=== PATIENT | female | born 1960 | race Hispanic/Latino ===

== ENCOUNTER → 2018-03-29 | Outpatient (CLI) | payer MEDICARE | END | disposition home or self-care (01) | LOC: OIH 13:06 | PROVIDERS: ATTEND Internal Medicine | DX: M17.0 Bilateral primary osteoarthritis of knee (principal) | CPT/HCPCS: 73560 ==

== ENCOUNTER 2018-04-02 03:44 | Emergency (ER) | payer MEDICARE ==
[2018-04-02] MEDS ORDERED: DEXAMETHASONE SOD PHOSPHATE 10MG/ML 1ML VIAL ONE (04:32)
[2018-04-02] MEDS ORDERED: PENICILLIN G BENZATHINE LA 1.2 MILUNITS/2 ML SYG ONE (04:37)
[2018-04-02] MEDS ORDERED: LIDOCAINE HCL 2% VISCOUS 15 ML UDCUP ONE (04:47)
== END 2018-04-02 05:36 | disposition home or self-care (01) ==
LOC: EDH 03:44
DX: J06.0 Acute laryngopharyngitis (principal); I10 Essential (primary) hypertension; Z98.890 Other specified postprocedural states
CPT/HCPCS: 71046; 87804 ×2; 87880; 96372 ×2; 99285; J0561; J1100

== ENCOUNTER 2019-03-22 09:34 | Emergency (ER) | payer MEDICARE ==
[2019-03-22 10:05] LABS: CREATININE 0.8 mg/dL (0.5-1.5); POTASSIUM 3.9 mmol/L (3.5-5.1)
[2019-03-22 10:10] LABS: ALBUMIN 3.2 g/dL (3.5-5.0); BILIRUBIN,TOTAL 0.5 mg/dL (0.2-1.0); TOTAL PROTEIN, SERUM 7.7 g/dL (6.0-8.3)
[2019-03-22] MEDS ORDERED: SODIUM CHLORIDE 0.9% 1000ML 1,000 ML IV ONE (10:23)
[2019-03-22 10:27] LABS: BASOPHILS % (AUTO) 0.4 % (0.0-5.0); EOSINOPHILS % (AUTO) 1.3 % (0.0-8.0); HEMATOCRIT 42.2 % (36-48); LYMPHOCYTES % (AUTO) 29.8 % (21.0-51.0); MEAN CORPUSCULAR HEMOGLOBIN 29.4 pg (27.0-33.0); MEAN CORPUSCULAR HGB CONC 33.3 g/dL (32.0-36.0); MEAN CORPUSCULAR VOLUME 88.1 fL (79-99); NEUTROPHILS % (AUTO) 60.5 % (40.0-77.0); NUCLEATED RED BLOOD CELLS 0.1 % (0.0-0.19); PLATELET COUNT (AUTO) 270 K/uL (130-400); RED BLOOD CELL COUNT(AUTO) 4.79 MIL/uL (4.00-5.50); RED CELL DISTRIBUTION WIDTH 13.6 % (11.0-15.5); WHITE BLOOD COUNT (AUTO) 8.4 K/uL (4.8-10.8)
[2019-03-22 11:04] LABS: APPEARANCE,URINE Cloudy (CLEAR); BILIRUBIN,URINE Negative (NEGATIVE); COLOR,URINE Yellow (YELLOW); GLUCOSE, URINE (UA) Negative (NEGATIVE); KETONES,URINE Negative (NEGATIVE); LEUKOCYTE ESTERASE ,URINE Trace (NEGATIVE); NITRATE,URINE Negative (NEGATIVE); OCCULT BLOOD,URINE Trace (NEGATIVE); PROTEIN,URINE Negative (NEGATIVE)
[2019-03-22 11:25] LABS: BACTERIA,URINE Few /HPF (None Seen); RBC,URINE 0-1 /HPF (0-1); WBC,URINE 0-1 /HPF (0-1)
[2019-03-22] MEDS ORDERED: LORAZEPAM 2 MG/ML 1 ML VIAL ONE (11:26)
== END 2019-03-22 12:43 | disposition home or self-care (01) ==
LOC: EDH 09:34
DX: R55 Syncope and collapse (principal); R53.1 Weakness; I10 Essential (primary) hypertension; F41.9 Anxiety disorder, unspecified; K21.9 Gastro-esophageal reflux disease without esophagitis; E78.5 Hyperlipidemia, unspecified; F31.9 Bipolar disorder, unspecified; Z79.899 Other long term (current) drug therapy
CPT/HCPCS: 36415; 80053; 81001; 82948; 84443; 84484; 85025; 93005; 96361; 96374; 99285; J2060; J7030

== ENCOUNTER → 2019-07-19 | Outpatient (CLI) | payer MEDICARE | END | disposition home or self-care (01) | LOC: SLP 20:13 | PROVIDERS: ATTEND Family Medicine | DX: G47.33 Obstructive sleep apnea (adult) (pediatric) (principal) | CPT/HCPCS: 95810 ==

== ENCOUNTER → 2019-08-26 | Outpatient (CLI) | payer MEDICARE | END | disposition home or self-care (01) | LOC: SLP 19:52 | PROVIDERS: ATTEND Family Medicine | DX: G47.30 Sleep apnea, unspecified (principal) | CPT/HCPCS: 95811 ==

== ENCOUNTER 2019-12-28 16:24 | Emergency (ER) | payer OTHER, MEDICARE ==
[2019-12-28 17:05] LABS: BASOPHILS % (AUTO) 0.3 % (0.0-5.0); EOSINOPHILS % (AUTO) 0.9 % (0.0-8.0); HEMATOCRIT 43.1 % (36-48); MEAN CORPUSCULAR HEMOGLOBIN 28.1 pg (27.0-33.0); MEAN CORPUSCULAR HGB CONC 31.8 g/dL (32.0-36.0); MEAN CORPUSCULAR VOLUME 88.3 fL (79-99); MONOCYTES % (AUTO) 7.3 % (3.0-13.0); NEUTROPHILS % (AUTO) 62.9 % (40.0-77.0); PLATELET COUNT (AUTO) 293 K/uL (130-400); RED BLOOD CELL COUNT(AUTO) 4.88 MIL/uL (4.00-5.50); RED CELL DISTRIBUTION WIDTH 14.1 % (11.0-15.5); WHITE BLOOD COUNT (AUTO) 13.9 K/uL (4.8-10.8)
[2019-12-28 17:13] LABS: APPEARANCE,URINE Clear (CLEAR); BILIRUBIN,URINE Negative (NEGATIVE); COLOR,URINE Yellow (YELLOW); GLUCOSE, URINE (UA) Negative (NEGATIVE); KETONES,URINE Negative (NEGATIVE); LEUKOCYTE ESTERASE ,URINE Trace (NEGATIVE); NITRATE,URINE Negative (NEGATIVE); OCCULT BLOOD,URINE Moderate (NEGATIVE); PROTEIN,URINE Negative (NEGATIVE)
[2019-12-28 17:18] LABS: CREATININE 0.8 mg/dL (0.5-1.5); POTASSIUM 4.5 mmol/L (3.5-5.1)
[2019-12-28 17:23] LABS: ALBUMIN 3.3 g/dL (3.5-5.0); BILIRUBIN,TOTAL 0.3 mg/dL (0.2-1.0); TOTAL PROTEIN, SERUM 7.8 g/dL (6.0-8.3)
[2019-12-28 17:27] LABS: BACTERIA,URINE Few /HPF (None Seen); SQUAMOUS EPITHELIAL CELL,UR Few /HPF (0-2)
[2019-12-28] MEDS ORDERED: CEPHALEXIN 500 MG CAPSULE ONE (21:37)
== END 2019-12-28 21:46 | disposition home or self-care (01) ==
LOC: EDH 16:24
DX: N39.0 Urinary tract infection, site not specified (principal); M62.81 Muscle weakness (generalized); R10.84 Generalized abdominal pain; Z20.828 Contact with and (suspected) exposure to other viral communicable diseases; I10 Essential (primary) hypertension; E78.5 Hyperlipidemia, unspecified; F31.9 Bipolar disorder, unspecified; K21.9 Gastro-esophageal reflux disease without esophagitis
CPT/HCPCS: 36415; 74176; 80053; 81001; 82550; 84484; 85025; 87426; 87804 ×2; 93005; 99285; U0003

== ENCOUNTER 2022-05-17 14:42 | Emergency (ER) | payer MEDICARE ==
[~2022-05-17] VITALS: Ht 160 cm; Wt 92.5 kg
[2022-05-17 15:25] LABS: BASOPHILS % (AUTO) 0.3 % (0.0-5.0); HEMATOCRIT 46.1 % (36-48); LYMPHOCYTES % (AUTO) 28.7 % (21.0-51.0); MEAN CORPUSCULAR HEMOGLOBIN 28.8 pg (27.0-33.0); MEAN CORPUSCULAR HGB CONC 31.7 g/dL (32.0-36.0); MEAN CORPUSCULAR VOLUME 90.9 fL (79-99); MONOCYTES % (AUTO) 6.1 % (3.0-13.0); NEUTROPHILS % (AUTO) 62.5 % (40.0-77.0); PLATELET COUNT (AUTO) 279 K/uL (130-400); RED BLOOD CELL COUNT(AUTO) 5.07 MIL/uL (4.00-5.50); RED CELL DISTRIBUTION WIDTH 13.2 % (11.0-15.5); WHITE BLOOD COUNT (AUTO) 13.4 K/uL (4.8-10.8)
[2022-05-17 15:26] LABS: APPEARANCE,URINE CLEAR (CLEAR); BILIRUBIN,URINE NEGATIVE (NEGATIVE); COLOR,URINE LIGHT-YELLOW (YELLOW); GLUCOSE, URINE (UA) NEGATIVE (NEGATIVE); KETONES,URINE NEGATIVE (NEGATIVE); LEUKOCYTE ESTERASE ,URINE NEGATIVE Leu/uL (NEGATIVE); NITRATE,URINE NEGATIVE (NEGATIVE); OCCULT BLOOD,URINE SMALL (NEGATIVE); PH,URINE 6.5 (5.0-8.0); PROTEIN,URINE NEGATIVE (NEGATIVE); UROBILINOGEN,URINE 0.2 mg/dL (0.2-1.0)
[2022-05-17 15:36] LABS: CREATININE 0.9 mg/dL (0.5-1.5)
[2022-05-17 15:36] LABS: RBC,URINE 0-1 /HPF (0-1); SQUAMOUS EPITHELIAL CELL,UR FEW /HPF (0-2); WBC,URINE 0-1 /HPF (0-1)
[2022-05-17 15:45] LABS: ALBUMIN 3.5 g/dL (3.5-5.0); TOTAL PROTEIN, SERUM 8.2 g/dL (6.0-8.3)
[2022-05-17 19:30] VITALS: BP 135/74
[2022-05-17] MEDS ORDERED: OMEP-420 PO (19:53)
== END 2022-05-17 20:04 | disposition home or self-care (01) ==
LOC: EDH 14:42
DX: K29.70 Gastritis, unspecified, without bleeding (principal); F41.9 Anxiety disorder, unspecified; I10 Essential (primary) hypertension; E78.5 Hyperlipidemia, unspecified; G47.30 Sleep apnea, unspecified; Z79.899 Other long term (current) drug therapy
CPT/HCPCS: 36415; 71045; 76705; 80053; 81001; 83690; 84484; 85025; 93005

== ENCOUNTER 2024-03-15 21:47 | Emergency (ER) | payer MEDICARE ==
[~2024-03-15] VITALS: Ht 160 cm; Wt 92.1 kg
[~2024-03-15 21:47] MED LIST: OMEP-420 PO
[2024-03-15 21:50] VITALS: TEMP 98.5
[2024-03-15 22:40] LABS: BASOPHILS # (AUTO) 0.03 K/uL (0.00-0.20); BASOPHILS % (AUTO) 0.3 % (0.0-5.0); EOSINOPHILS # (AUTO) 0.17 K/uL (0.00-0.70); EOSINOPHILS % (AUTO) 1.5 % (0.0-8.0); HEMATOCRIT 41.2 % (36-48); IMMATURE GRANULOCYTE ABSOLUTE 0.05 K/uL (0-1); LYMPHOCYTES # (AUTO) 2.4 K/uL (1.0-4.8); LYMPHOCYTES % (AUTO) 21.4 % (21.0-51.0); MEAN CORPUSCULAR HEMOGLOBIN 28.3 pg (27.0-33.0); MEAN CORPUSCULAR VOLUME 88.2 fL (79-99); MONOCYTES # (AUTO) 0.8 K/uL (0.1-1.0); MONOCYTES % (AUTO) 6.8 % (3.0-13.0); NEUTROPHILS # (AUTO) 7.8 K/uL (1.8-7.7); NEUTROPHILS % (AUTO) 69.6 % (40.0-77.0); PLATELET COUNT (AUTO) 293 K/uL (130-400); RED BLOOD CELL COUNT(AUTO) 4.67 MIL/uL (4.00-5.50); RED CELL DISTRIBUTION WIDTH 13.4 % (11.0-15.5); WHITE BLOOD COUNT (AUTO) 11.2 K/uL (4.8-10.8)
[2024-03-15 22:50] LABS: CREATININE 0.8 mg/dL (0.5-1.0); POTASSIUM 4.1 mmol/L (3.5-5.1)
[2024-03-15 23:00] VITALS: BP 154/78; PULSE 87; RESP 18; O2SAT 98
[2024-03-15 23:12] LABS: B-TYPE NATRIURETIC PEPTIDE 15 pg/mL (0-100)
== END 2024-03-15 23:52 | disposition home or self-care (01) ==
LOC: EDH 21:47
DX: R07.89 Other chest pain (principal); F41.9 Anxiety disorder, unspecified; I10 Essential (primary) hypertension; G47.30 Sleep apnea, unspecified; Z79.899 Other long term (current) drug therapy
CPT/HCPCS: 36415; 71045; 80048; 82550; 83880; 84484; 85025; 93005

== ENCOUNTER 2024-05-31 19:58 | Emergency (ER) | payer MEDICARE ==
[~2024-05-31] VITALS: Ht 160 cm; Wt 83.5 kg
--- NOTE | 2024-05-31 20:27 | EKG ---
[facility] Test Date: 2024-05-31 Test Time: 20:24:35 Pat Name: BETY ROSE Department: ED Room: Gender: F Fisher Trot Line: [id number] : 1960 Requested By: ORLANDO TOSCANO Order Number: [id number] Reading MD: Huseyin Yoder Measurements Intervals [place] Rate: 57 P: 48 [place]: 158 QRS: -26 QRSD: 106 T: 48 QT: 409 QTc: 397 Interpretive Statements Sinus rhythm Compared to ECG 03/15/2024 22:46:07 Myocardial infarct finding no longer present Electronically Signed On 06-01-2024 18:39:46 ELECTRICAL ENGINEER MEP by Huseyin Yoder Please click the below link to view image of tracing.
[2024-05-31 21:03] LABS: BASOPHILS # (AUTO) 0.04 K/uL (0.00-0.20); BASOPHILS % (AUTO) 0.4 % (0.0-5.0); EOSINOPHILS # (AUTO) 0.21 K/uL (0.00-0.70); EOSINOPHILS % (AUTO) 1.9 % (0.0-8.0); HEMATOCRIT 42.7 % (36-48); IMMATURE GRANULOCYTE ABSOLUTE 0.03 K/uL (0-1); LYMPHOCYTES # (AUTO) 3.5 K/uL (1.0-4.8); LYMPHOCYTES % (AUTO) 31.2 % (21.0-51.0); MEAN CORPUSCULAR HEMOGLOBIN 28.4 pg (27.0-33.0); MEAN CORPUSCULAR HGB CONC 31.6 g/dL (32.0-36.0); MEAN CORPUSCULAR VOLUME 89.9 fL (79-99); MONOCYTES # (AUTO) 0.8 K/uL (0.1-1.0); MONOCYTES % (AUTO) 7.2 % (3.0-13.0); NEUTROPHILS # (AUTO) 6.7 K/uL (1.8-7.7); PLATELET COUNT (AUTO) 304 K/uL (130-400); RED BLOOD CELL COUNT(AUTO) 4.75 MIL/uL (4.00-5.50); RED CELL DISTRIBUTION WIDTH 13.4 % (11.0-15.5); WHITE BLOOD COUNT (AUTO) 11.3 K/uL (4.8-10.8)
--- NOTE | 2024-05-31 21:05 | HMCIMG ---
PORTABLE CHEST RADIOGRAPH INDICATION: fluid overload COMPARISON: 03/15/2024 FINDINGS: Heart size is normal. The pulmonary vascularity and gladys appear normal. No abnormal pulmonary parenchymal opacity or consolidation identified. No significant pleural effusion noted. No pneumothorax detected. IMPRESSION: No radiographic evidence for any acute cardiopulmonary process.
[2024-05-31 21:23] LABS: B-TYPE NATRIURETIC PEPTIDE 32 pg/mL (0-100); CREATININE 0.8 mg/dL (0.5-1.0); POTASSIUM 4.5 mmol/L (3.5-5.1)
[2024-05-31 21:30] LABS: ALBUMIN 3.4 g/dL (3.5-5.0); BILIRUBIN,DIRECT 0.1 mg/dL (0.0-0.3); BILIRUBIN,TOTAL 0.3 mg/dL (0.2-1.0); TOTAL PROTEIN, SERUM 7.6 g/dL (6.0-8.3)
--- NOTE | 2024-05-31 21:54 | ERN ---
ED Note History of Present Illness Stated Complaint: C/O SWELLING AND PAIN TO LOWER EXTREMITIES Chief Complaint: Lower Extremity Pain/Injury Time Seen by MD: 21:43 Dictation: Patient is a 63-year-old female coming in with her grandson with complaints of bilateral lower extremity pain to include calf tenderness swelling for the last 2-3 days. She states it hurts to walk however denies any claudication with prolonged ambulation. No fever no chills no nausea vomiting denies congestive heart failure/PaD are neuropathy. Allergies: Coded Allergies: No Known Allergies (Unverified Allergy, Unknown, 03/22/19) Home Meds Active Scripts Prednisone (Prednisone) 20 Mg Tablet, 40 MG PO DAILY for 5 Days, #10 TAB Two tablets by mouth two tablets by mouth daily with food for five days Prov:GELY RANGEL NP 05/31/24 Omeprazole (Omeprazole) 20 Mg Tab.rap, 20 MG PO DAILY for 30 Days, #30 TAB 3 Refills Prov:PATTIE RASMUSSEN MD 05/17/22 Past Medical History Past Medical History: Hypertension Additional Past Medical Hx: SLEEP APNEA, RA Surgical History: None Surgical History Other: THYROID BIOPSY Social History: Negative History: Not Applicable RN Note Reviewed/Agreed w/PFSH: Yes Review of System Dictation CONSTITUTIONAL: Negative except for HPI HEAD/FACE: Negative except for HPI EENT: Negative except for HPI RESPIRATORY: Negative except for HPI GASTROINTESTINAL/ABDOMINAL: Negative except for HPI GENITOURINARY: Negative except for HPI MUSCULOSKELETAL: Negative except for HPI bilateral leg pain with calf swelling tenderness INTEGUMENTARY: Negative except for HPI NEUROLOGICAL/PSYCH: Negative except for HPI HEMATOLOGIC/LYMPHATIC: Negative except for HPI All Systems Negative, Except as noted above. 13 point review of systems assessed and all negative except for above. Initial Vital Sign VS Vital Signs Date Time Temp Pulse Resp B/P (MAP) Pulse Ox O2 Delivery O2 Flow Rate FiO2 05/31/24 20:01 98.1 67 20 156/83 99 Room Air 05/31/24 23:16 0 21 Physical Exam Dictation Vital Signs reviewed General Appearance: Alert, oriented x 3, moderate acute distress, well developed, nourished. Head and Face: non-traumatic. Eyes: PERRL, pink conjunctivas, eyelid no trauma, anterior chamber with arcus senilis. Ears: Pinnas intact and no signs of trauma or erythema ear canals clear and no discharge TM no erythema Nose: No discharge, no bleeding. Oropharynx: Mouth normal, tongue pink, pharynx clear,no erythema, tonsils no exudates, no abscesses noted, mucous membrane moist Neck: Supple, non-tender, no thyromegaly, no masses, no JVD, no bruits Breast:Deferred Chest:No tenderness, no crepitus, no paradoxical movement, no retractions Lungs:Clear, well-ventilated, symmetric, no rales, no wheezing, no rhonchi, no stridor, good breath sounds bilaterally Heart: Regular rate, regular rhythm, no murmur, no gallops Vascular: no peripheral edema, Abdomen: Soft, positive bowel sounds, nondistended, no guarding, nontender, no rebound, no masses no hepatomegaly, no splenomegaly, no Degroot's sign, no hernias. Rectal: Deferred Genital: Deferred Neurological: Normal speech, motor function intact, sensory function intact Musculoskeletal: Neck nontender, full range of motion, back nontender, full range of motion, Extremities: Bilateral calf tenderness with mild swelling. Distal neurovascular CMS intact, leg is warm to touch Skin: Color pink, dry, no turgor, no rash, no lacerations, no abrasions, no contusions. Lymphatic: Deferred Results (Laboratory/Radiology) Laboratory/Radiology Laboratory Tests Test 05/31/24 20:55 White Blood Count 11.3 K/uL (4.8-10.8) H Red Blood Count 4.75 MIL/uL (4.00-5.50) Hemoglobin 13.5 g/dL (12.0-16.0) Hematocrit 42.7 % (36-48) Mean Corpuscular Volume 89.9 fL (79-99) Mean Corpuscular Hemoglobin 28.4 pg (27.0-33.0) Mean Corpuscular Hemoglobin Concent 31.6 g/dL (32.0-36.0) L Red Cell Distribution Width 13.4 % (11.0-15.5) Platelet Count 304 K/uL (130-400) Mean Platelet Volume 10.3 fL (7.5-10.5) Immature Granulocyte % (Auto) 0.3 % (0-1) Neutrophils (%) (Auto) 59.0 % (40.0-77.0) Lymphocytes (%) (Auto) 31.2 % (21.0-51.0) Monocytes (%) (Auto) 7.2 % (3.0-13.0) Eosinophils (%) (Auto) 1.9 % (0.0-8.0) Basophils (%) (Auto) 0.4 % (0.0-5.0) Neutrophils # (Auto) 6.7 K/uL (1.8-7.7) Lymphocytes # (Auto) 3.5 K/uL (1.0-4.8) Monocytes # (Auto) 0.8 K/uL (0.1-1.0) Eosinophils # (Auto) 0.21 K/uL (0.00-0.70) Basophils # (Auto) 0.04 K/uL (0.00-0.20) Absolute Immature Granulocyte (auto 0.03 K/uL (0-1) Nucleated Red Blood Cells 0.0 % (0.0-0.19) Sodium Level 143 mmol/L (136-145) Potassium Level 4.5 mmol/L (3.5-5.1) Chloride Level 104 mmol/L (101-111) Carbon Dioxide Level 35 mmol/L (21-32) H Blood Urea Nitrogen 12 mg/dL (7-18) Creatinine 0.8 mg/dL (0.5-1.0) Glomerular Filtration Rate Calc 83 mL/min (>90) Random Glucose 84 mg/dL (70-105) Total Calcium 9.3 mg/dL (8.5-10.1) Total Bilirubin 0.3 mg/dL (0.2-1.0) Direct Bilirubin 0.1 mg/dL (0.0-0.3) Aspartate Amino Transf (AST/SGOT) 16 U/L (10-37) Alanine Aminotransferase (ALT/SGPT) 21 U/L (12-78) Alkaline Phosphatase 108 U/L (50-136) Total Creatine Kinase 57 U/L (21-232) Troponin I High Sensitivity 5.9 ng/L (4-50) B-Type Natriuretic Peptide 32 pg/mL (0-100) Total Protein 7.6 g/dL (6.0-8.3) Albumin 3.4 g/dL (3.5-5.0) L Two thousand three hundred bilateral ultrasound Dopplers negative for DVT Labs Reviewed?: Yes EKG Comment: [facility] Test Date: 2024-05-31 Test Time: 20:24:35 Pat Name: BETY ROSE Department: EDH Room: Gender: Female Lumber Racker: [id number] : 1960 Requested By: ORLANDO TOSCANO Order Number: [id number] Reading MD: Measurements Intervals [place] Rate: 57 P: 48 [place]: 158 QRS: -26 QRSD: 106 T: 48 QT: 409 QTc: 397 Interpretive Statements Sinus rhythm Please click the below link to view image of tracing. ED Course ED Course Orders Procedure Category Date Status Time Cardiac Panel LAB 05/31/24 Complete 20:08 Cbc With Differential LAB 05/31/24 Complete 20:08 Basic Metabolic Panel LAB 05/31/24 Complete 20:08 B-Type Natriuretic LAB 05/31/24 Complete Peptide 20:08 Urinalysis Profile LAB 05/31/24 Logged 20:08 Chest 1vw RAD 05/31/24 Resulted 20:08 12 Lead Ekg Tracing- EKG 05/31/24 Complete Technical 20:08 Hepatic Function Panel LAB 05/31/24 Complete 20:08 Us Venous Doppler US 05/31/24 Taken Bilateral 21:50 Methylprednisolone PHA 05/31/24 Complete Succ 125mg (Solu-Medr 22:30 Ketorolac PHA 05/31/24 Complete Tromethamine 30mg/Ml 22:30 Current Medications Medications (Trade) Dose Ordered Sig/Gaby Route PRN Reason Start Time Stop Time Status Last Admin Dose Admin Ketorolac Tromethamine (toRADol) 30 mg ONCE ONCE IVP 05/31/24 22:30 05/31/24 22:31 DC 05/31/24 22:50 Methylprednisolone Sodium Succinate (Solu-medROL 125MG) 125 mg ONCE ONCE IVP 05/31/24 22:30 05/31/24 22:31 DC 05/31/24 22:50 Vital Signs Date Time Temp Pulse Resp B/P (MAP) Pulse Ox O2 Delivery O2 Flow Rate FiO2 05/31/24 23:25 98.1 54 18 114/54 99 Room Air* 0 05/31/24 23:16 54 18 99/55 98 Room Air* 0 05/31/24 20:01 98.1 67 20 156/83 99 Room Air 2300/patient states pain is improved after Solu-Medrol and Toradol. She will be discharged home with prednisone to take with food for five days. She will be referred to for arthralgia HEART Score Response (Comments) Value History: Low suspicion (0) 0 Age: 45-65yrs (+1) 1 Risk Factors: 1-2 risk factors (+1) 1 Initial Troponin: Normal limit (0) 0 Total 2 Medical Decision Making MDM MDM: Differential diagnosis: DVT, electrolyte imbalance/dehydration/ACS/AMI/arthral ronak Rationale: Tests considered and ordered secondary to shared decision making include: EKG/labs/radiology Previous outside records reviewed: Old ER visits. Reviewed Risk of complication and/or morbidity or mortality of patient management: None Medications-Per medication reconciliation Need for hospitalization: Patient does not meet criteria for hospitalization. No Need for emergency major/minor surgery: No There are no social concerns with this patient. Prescription drug management prednisone Prescriptions will include symptomatic care Patient's prior external medical records from other ER visits were reviewed by me as indicated. Prior testing and results from previous visits were reviewed. Prior tests were taken into account with medical decision making and resource utilization, independent historian/historians were used to obtain complete medical history. I independently interpreted the test that were performed, results were reviewed by me and considered findings on radiology if ordered. Medical management and examination interpretation discussions were had by me with other qualified healthcare professionals as indicated for the patient's care. DX & DISP Disposition: Discharge Departure Impression: Primary Impression: Arthralgia of both lower legs Condition: Stable Scripts Prednisone (Prednisone) 20 Mg Tablet 40 MG PO DAILY for 5 Days, #10 TAB Two tablets by mouth two tablets by mouth daily with food for five days Prov: GELY RANGEL LEAF SIZE PICKER 05/31/24 Additional Instructions: Follow-up with primary care provider in 1 to 2 days. Take medications as directed here in the emergency room. Okay to continue home medications unless otherwise discussed during your visit in the emergency room today. Return to your nearest emergency room if symptoms worsen or if there is no improvement. Call 911 if you need immediate assistance. Take Tylenol or Motrin [id number]-[id number] as needed and if no contraindications are present. Increase oral hydration. A wound culture or urine culture was ordered here in the emergency room department please follow-up with primary care provider and advise them to get repeat ports from our facility. If you had any Fred wrap/splints that were applied here, please do not remove them until you see your primary care or specialty. Continue naproxen at home twice a day for five days with food. Take prednisone as directed daily with food for five days. Follow up with the orthopedic surgeon in the next 2-3 days, call for an appointment. Referrals: DARREN ROSARIO (PCP) MACRINA RUIZ MD Time of Disposition: 23:05 I have reviewed the case, and I agree with, Diagnosis and Plan ATTESTATION BY PHYSICIAN I PERFORMED THE SUBSTANTIVE PORTION OF THE VISIT. I HAVE REVIEWED AND PERSONALLY MADE AND APPROVED THE MANAGEMENT PLAN THAT IS DOCUMENTED IN THE NOTE BY MYSELF FOR THE A PP. I ACKNOWLEDGED FOR RESPONSIBILITY FOR THE PATIENT'S MANAGEMENT PLAN. GELY RANGEL NP May 31, 2024 21:54 ORLANDO TOSCANO DO Jun 01, 2024 00:47
[2024-05-31] MEDS: ketOROlac 30MG VIAL (30MG/ML) IVP ONE (22:50)
[2024-05-31] MEDS: Solu-medROL 125MG VIAL IVP ONE (22:50)
[2024-05-31] MEDS ORDERED: PRED20TA3 PO (23:13)
[2024-05-31 23:25] VITALS: BP 114/54; PULSE 54; RESP 18; TEMP 98.1; O2SAT 99
--- NOTE | 2024-06-01 08:45 | HMCIMG ---
ULTRASOUND VENOUS DOPPLER, BILATERAL LOWER EXTREMITIES INDICATION: Bilateral lower extremity pain and swelling TECHNIQUE: Routine grayscale and color Doppler ultrasound of the bilateral lower extremity veins performed. COMPARISON: No priors. FINDINGS: The demonstrated veins of the bilateral lower extremity including the common femoral vein, femoral vein, and popliteal vein are associated with normal compressibility, augmentation, and flow. Normal respiratory variation was identified. No evidence for echogenic intraluminal thrombus formation. IMPRESSION: No sonographic evidence for deep venous thrombosis within the bilateral lower extremity veins.
== END 2024-05-31 23:25 | disposition home or self-care (01) ==
LOC: EDH 19:58
DX: M79.605 Pain in left leg (principal); M79.604 Pain in right leg; I10 Essential (primary) hypertension; Z79.52 Long term (current) use of systemic steroids; Z79.899 Other long term (current) drug therapy
CPT/HCPCS: 99285; 93970; 96374; 71045; 96375; 82550; 80076; 84484; 80048; 83880; 85025; 36415; 93005; J2919; J1885

== ENCOUNTER 2025-04-20 18:35 | Emergency (ER) | payer MEDICARE, MEDICAID ==
[~2025-04-20] VITALS: Ht 160 cm; Wt 81.6 kg
[~2025-04-20 18:35] MED LIST changes: +PRED20TA3 PO
--- NOTE | 2025-04-20 19:15 | NUR ---
PT CARE ASSUMED AT THIS TIME
--- NOTE | 2025-04-20 19:58 | HMCIMG ---
EXAM: CR right Knee, 3 View. CLINICAL HISTORY: pain COMPARISON: None provided. FINDINGS: BONES: No acute fracture or aggressive appearing osseous lesion. JOINTS: The joint spaces show no significant degenerative disease. There is no joint effusion appreciated. SOFT TISSUES: The soft tissues are unremarkable. IMPRESSION: No acute osseous pathology evident. /[place]
--- NOTE | 2025-04-20 20:23 | NUR ---
PT PLACED IN KNEE IMMOBILIZER AT BEDSIDE BY ED RN ORDERED BY NAVEED MACKAY
--- NOTE | 2025-04-20 20:25 | NUR ---
PT GIVEN CRUTCHES ORDERED BY ED SEWER AND CUTTER FINGER BUFF MATERIAL THOMPSON. ED RN EDUCATED PT ABOUT THE PROPER USE OF CRUTCHES. PT DEMOSTRATED PROPER USE OF CRUTCHES AT BEDSIDE. PT VERBILIZED THE UNDERSTANDING OF PROPER USE OF CRUTCHES TO PREVENT POSSIBLE INJURIES.
[2025-04-20] MEDS ORDERED: MELO-108 PO (20:27)
--- NOTE | 2025-04-20 20:28 | ERN ---
ED Note History of Present Illness Stated Complaint: RT KNEE PAIN Chief Complaint: Knee Injury/Swelling Time Seen by MD: 18:37 Time Seen by Midlevel: 18:37 Dictation: The patient is a 64-year-old female with history of hypertension who presents to the emergency department with complaints of right knee pain after she injured it while dancing three weeks ago. Patient reports that she went to her primary doctor who just gave her some pain medications but did not take any imaging. Allergies: Coded Allergies: No Known Allergies (Unverified Allergy, Unknown, 03/22/19) Home Meds Active Scripts Prednisone (Prednisone) 20 Mg Tablet, 40 MG PO DAILY for 5 Days, #10 TAB Two tablets by mouth two tablets by mouth daily with food for five days Prov:GELY RANGEL 05/31/24 Omeprazole (Omeprazole) 20 Mg Tab.rap, 20 MG PO DAILY for 30 Days, #30 TAB 3 Refills Prov:PATTIE RASMUSSEN MD 05/17/22 Past Medical History Past Medical History: Hypertension Additional Past Medical Hx: SLEEP APNEA, RA Surgical History: None Surgical History Other: THYROID BIOPSY Social History: Negative History: Not Applicable RN Note Reviewed/Agreed w/PFSH: Yes Review of System Dictation Constitutional: Negative for fever,chills, and weight loss Eyes: Negative for injury, pain,redness, and discharge ENT: Negative for injury,pain or swelling Cardiovascular: Negative for chest pain, palpitations, and edema Respiratory: Negative for shortness of breath, cough, and wheezing, Abdomen/GI: Negative for abdominal pain, nausea, vomiting, diarrhea, and constipation Back: Negative for injury and pain : Negative for injury, bleeding and discharge MS/Extremity: Positive for right knee pain Skin: Negative for rash, and discoloration Neuro: Negative for headache, weakness, numbness, tingling, and seizure Psych: Negative for suicide ideation, homicidal ideation, and hallucinations Initial Vital Sign VS Vital Signs Date Time Temp Pulse Resp B/P (MAP) Pulse Ox O2 Delivery O2 Flow Rate FiO2 04/20/25 18:36 98.4 69 16 162/64 100 Room Air 0 04/20/25 19:15 21 Physical Exam Dictation Vital Signs reviewed General Appearance: Alert, oriented x 3, no acute distress, well developed, nourished. Head and Face: non-traumatic. Eyes: PERRL, pink conjunctivas, eyelid no trauma, anterior chamber with arcus senilis. Ears: Pinnas intact and no signs of trauma or erythema ear canals clear and no discharge TM no erythema Nose: No discharge, no bleeding. Oropharynx: Mouth normal, tongue pink. pharynx clear,no erythema, tonsils no exudates, no abscesses noted, mucous membrane moist Neck: Supple, non-tender, no thyromegaly, no masses, no JVD, no bruits Breast:Deferred Chest:No tenderness, no crepitus, no paradoxical movement, no retractions Lungs:Clear, well-ventilated, symmetric, no rales, no wheezing, no rhonchi, no stridor, good breath sounds bilaterally Heart: Regular rate, regular rhythm, no murmur, no gallops Vascular: no peripheral edema, dorsalis pedis 3+ bilaterally Abdomen: Soft, positive bowel sounds, nondistended, no guarding, nontender, no rebound, no masses no hepatomegaly, no splenomegaly, no Degroot's sign, no hernias. Rectal: Deferred Genital: Deferred Neurological: Normal speech, motor function intact, sensory function intact Musculoskeletal: Neck nontender, full range of motion, back nontender, full range of motion, Extremities: nontender, full range of motion to right knee, no deformities, cap refill less than 2 seconds Skin: Color pink, dry, no turgor, no rash, no lacerations, no abrasions, no contusions. Lymphatic: Deferred Results (Laboratory/Radiology) Laboratory/Radiology REASON: pain ORDERING PHYSICIAN: THOMPSON MERRITT ST[employer] AND CONCRETE WASHER PROCEDURE: KNEE 3V RT - KNEE 3VWS RT EXAM: CR right Knee, 3 View. CLINICAL HISTORY: pain COMPARISON: None provided. FINDINGS: BONES: No acute fracture or aggressive appearing osseous lesion. JOINTS: The joint spaces show no significant degenerative disease. There is no joint effusion appreciated. SOFT TISSUES: The soft tissues are unremarkable. IMPRESSION: No acute osseous pathology evident. /[place] Labs Reviewed?: Yes ED Course ED Course Orders Procedure Category Date Status Time Knee 3vws Rt RAD 04/20/25 Resulted 18:45 Ketorolac 60mg/2ml PHA 04/20/25 Complete (Toradol 60mg/2ml) 19:00 Knee Immobilizer DEREJE 04/20/25 In Process 20:09 Crutches W/Training CPOE 04/20/25 Transmitted (Er) 20:09 Current Medications Medications (Trade) Dose Ordered Sig/Gaby Route PRN Reason Start Time Stop Time Status Last Admin Dose Admin Ketorolac Tromethamine (toRADol 60MG/ 2ML) 60 mg ONCE ONCE IM 04/20/25 19:00 04/20/25 19:02 DC 04/20/25 19:19 Vital Signs Date Time Temp Pulse Resp B/P (MAP) Pulse Ox O2 Delivery O2 Flow Rate FiO2 04/20/25 19:15 98.4 80 19 136/69 98 Room Air* 0 21 04/20/25 18:36 98.4 69 16 162/64 100 Room Air 0 Medical Decision Making MDM The patient is a 64-year-old female with history of hypertension who presents to the emergency department with complaints of right knee pain after she injured it while dancing three weeks ago. Patient reports that she went to her primary doctor who just gave her some pain medications but did not take any imaging. X-ray showed no acute fractures or dislocations. Patient will be placed on a knee immobilizer and will be referred to ortho. On physical exam patient is in no acute distress, neurovascularly intact. Differential diagnosis: Knee dislocation, knee sprain, arthritis of the knee Need for hospitalization: Patient does not meet criteria for hospitalization. There are no social concerns with this patient. DX & DISP Disposition: Discharge Departure Impression: Primary Impression: Right knee sprain Condition: Stable Scripts Meloxicam (Meloxicam) 15 Mg Tablet 1 TAB PO DAILY for 10 Days, #10 TAB 0 Refills Prov: THOMPSON MERRITT [employer] AND CONCRETE WASHER 04/20/25 Additional Instructions: Your x-ray did not show any fractures. Please follow up with your primary doctor in 1-2 days. Follow up with the ortho. FOLLOW-UP WITH PRIMARY CARE PROVIDER IN 1 TO 2 DAYS. TAKE MEDICATIONS DIRECTED HERE IN THE EMERGENCY ROOM. OKAY TO CONTINUE HOME MEDICATIONS UNLESS OTHERWISE DISCUSSED DURING YOUR VISIT IN THE EMERGENCY ROOM TODAY. RETURN TO YOUR NEAREST EMERGENCY ROOM IF SYMPTOMS WORSEN OR IF THERE IS NO IMPROVEMENT. CALL 911 IF YOU NEED IMMEDIATE ASSISTANCE. TAKE TYLENOL [id number] NEEDED AND IF NO CONTRAINDICATIONS ARE PRESENT. INCREASE ORAL HYDRATION. A WOUND CULTURE OR URINE CULTURE WAS ORDERED HERE IN THE EMERGENCY ROOM DEPARTMENT PLEASE FOLLOW-UP WITH PRIMARY CARE PROVIDER AND ADVISE THEM TO GET REPEAT PORTS FROM OUR FACILITY. IF YOU HAD ANY ANDREA WRAP/SPLINTS THAT WERE APPLIED HERE, PLEASE DO NOT REMOVE THEM UNTIL YOU SEE YOUR PRIMARY CARE OR SPECIALTY. Referrals: DARREN ROSARIO (PCP) VIVIEN STAPLETON MD Time of Disposition: 20:27 I have reviewed the case, and I agree with, Diagnosis and Plan THOMPSON MERRITT ST[employer] AND CONCRETE WASHER Apr 20, 2025 20:28
[2025-04-20 20:36] VITALS: BP 144/74; PULSE 75; RESP 15; TEMP 98.4; O2SAT 98
== END 2025-04-20 20:58 | disposition home or self-care (01) ==
LOC: EDH 18:35
DX: S83.91XA Sprain of unspecified site of right knee, initial encounter (principal); I10 Essential (primary) hypertension; Z79.52 Long term (current) use of systemic steroids; Z79.899 Other long term (current) drug therapy; Z98.890 Other specified postprocedural states; X58.XXXA Exposure to other specified factors, initial encounter; Y93.41 Activity, dancing; Y92.89 Other specified places as the place of occurrence of the external cause; Y99.8 Other external cause status
CPT/HCPCS: 99283; 29505; 73562; 96372; J1885